=== PATIENT | female | born 1985 | race Two or more races ===

== ENCOUNTER → 2024-04-03 | Outpatient (CLI) | payer MEDICAID, SELFPAY ==
--- NOTE | 2024-04-03 13:07 | XR_ITS ---
Examination: Foot, right, 3 views Technique: AP, oblique, lateral views foot, 3 views Date and time of exam: April 03, 2024 1406 hours INDICATIONS: Injury to the foot 2 weeks ago with persistent foot pain. FINDINGS: No acute fracture No dislocation No foreign body IMPRESSION: No acute fracture
== END | disposition home or self-care (01) ==
LOC: CDIM 12:59
PROVIDERS: PCP Specialist; Referring Provider Physician Assistant; Visit Provider Physician Assistant
DX: S99.921A Unspecified injury of right foot, initial encounter (principal); X58.XXXA Exposure to other specified factors, initial encounter
CPT/HCPCS: 73630

== ENCOUNTER 2024-06-03 13:05 | Emergency (ER) | payer MEDICAID, SELFPAY ==
[2024-06-03 13:06] VITALS: BMI 38.6
[2024-06-03 13:18] VITALS: BP 132/89; PULSE 83; RESP 18; TEMP 37; O2SAT 97
--- NOTE | 2024-06-03 13:23 | PD.EDRME ---
Rapid Medical Screening Exam [facility] Arrival date/time: 06/03/24 13:05 -year-old female presents for concerns for possible infection to the right hand middle digit which is now radiating up her arm patient currently is on antibiotics Chief Complaint: Hand/Wrist Problems Vital signs: Vital Signs Temperature 98.6 F 06/03/24 13:18 Pulse Rate 83 06/03/24 13:18 Respiratory Rate 18 06/03/24 13:18 Blood Pressure 132/89 H 06/03/24 13:18 Pulse Oximetry (%) 97 06/03/24 13:18 Oxygen Delivery Method Room Air 06/03/24 13:18
[2024-06-03 13:45] LABS: Lactate (Lactic Acid) 2.1 mMol/L (0.4-2.0)
[2024-06-03 13:46] LABS: Basophils # (Auto) 0.1 Thou/mm3 (0.0-0.2); Basophils % (Auto) 1 % (0-2.5); Eosinophils # (Auto) 0.2 Thou/mm3 (0.0-0.5); Eosinophils % (Auto) 2 % (0-10); Hematocrit 34.2 % (36.0-46.0); Hemoglobin 11.6 g/dL (12.0-16.0); Immature Granulocytes % (Auto) 1 % (0-0); Immature Granulocytes Auto 0.06 Thou/mm3 (0.00-0.00); Lymphocytes # (Auto) 2.3 Thou/mm3 (1.0-4.8); Lymphocytes % (Auto) 24 % (10-50); Mean Corpuscular HGB Conc 33.9 g/dl (31.0-37.0); Mean Corpuscular Hemoglobin 27.4 pg (25.0-35.0); Mean Corpuscular Volume 81 fL (80-100); Monocytes # (Auto) 0.7 Thou/mm3 (0.0-0.8); Monocytes % (Auto) 7 % (0-12); Neutrophils # (Auto) 6.2 Thou/mm3 (1.8-7.7); Neutrophils % (Auto) 65 % (37-80); Nucleated Red Blood Cell % 0 /100 WBC (0); Platelet Count 256 Thou/mm3 (140-440); RDW Standard Deviation 40.2 fL (36.4-46.3); Red Blood Count 4.23 Miln/mm3 (4.00-5.20); White Blood Count 9.5 Thou/mm3 (3.6-11.0)
[2024-06-03 14:03] LABS: HCG,Qualitative Serum Negative
[2024-06-03 14:20] LABS: Alanine Aminotransferase 28 U/L (10-49); Albumin, Serum 4.2 gm/dL (3.5-5.0); Albumin/Globulin Ratio 1.4 (1.2-2.2); Alkaline Phosphatase 91 U/L (46-116); Anion Gap 8 (7-16); Aspartate Amino Transferase 30 U/L (0-34); BUN/Creatinine Ratio 14 Ratio (12-20); Bilirubin,Total 0.2 mg/dL (0.3-1.2); Blood Urea Nitrogen 13 mg/dL (9-23); C-Reactive Protein 2.1 mg/dL (0.0-0.9); Calcium 9.2 mg/dL (8.3-10.6); Calcium (Corrected) 9.2 mg/dL (8.5-10.1); Carbon Dioxide 24.8 mMol/L (20.0-31.0); Chloride 106 mMol/L (98-107); Creatinine (Component) 0.9 mg/dL (0.6-1.3); Estimated Creatinine Clearance 96.6 mL/min (>60); Globulin 2.9 gm/dL (2.3-3.5); Glucose 130 mg/dL (74-106); Osmolality,Calculated 279 (275-295); Potassium 4.6 mMol/L (3.4-5.1); Procalcitonin < 0.04 ng/ml (0.0-0.49); Sodium 139 mMol/L (136-145); Total Protein 7.1 gm/dL (5.7-8.2); eGFR > 60 See Note
[2024-06-03 15:02] LABS: Sed Rate (ESR) 30 mm/hr (0-20)
--- NOTE | 2024-06-03 15:47 | EDNOTE_ITS ---
<Statement entered by Manju Thacker MD - 06/03/24 17:06> As co-signing physician, I was present and available for consult prn. I concur with the plan and care as documented by the midlevel provider. ED General RME/HPI General Chief complaint: Hand/Wrist Problems Stated complaint: LEFT HAND SWELLING, POSS CELLULITIS X3D Time Seen by Provider: 06/03/24 14:17 Arrival date/time: 06/03/24 13:05 CC: Redness and streaking from a small infection site on the medial aspect of the base of the third digit. Patient was seen by PCP on Saturday started on Bactrim, the patient was informed if there is no improvement in 48 hours to come to the ER for IV antibiotics. The patient is afebrile nontoxic-appearing not in any acute distress. Patient states it is a spider bite . There is 2 papules in the third digit and then there is subtle streaking to the anterior of the forearm. RME / HPI RME / HPI narrative: 06/03/24 13:05 -year-old female presents for concerns for possible infection to the right hand middle digit which is now radiating up her arm patient currently is on antibiotics Related Data Previous Rx's ?Medication ?Instructions ?Recorded methocarbamol 750 mg tablet 750 mg PO TID PRN muscle p ain #30 10/13/20 tabs methylprednisolone 4 mg tablets in See Rx Instructions .Route 10/13/20 a dose pack (Medrol (Sid)) .COMPLEX #21 tabs hydrocodone 5 mg-acetaminophen 325 1 tab PO BID PRN pa in #10 tabs 01/03/21 mg tablet sulfamethoxazole 800 1 tab PO BID #20 tabs mg-trimethoprim 160 mg tablet (Bactrim DS) prednisone 20 mg tablet See Taper PO BID 3 days #6 t abs 06/03/24 Allergies Allergy/AdvReac Type Severity Reaction Status Date / Time Penicillins Allergy Severe Swelling Verified 06/03/24 13:08 of Lip/Tongue/Throat Review of Systems Review of Systems Narrative Review of Systems: GEN: No fever, no chills, no weight loss EYES: No discharge, no visual changes, no pain HEENT: No ear pain, no congestion, no sore throat PULM: No shortness of breath, no cough, no congestion CV: No chest pain, no dyspnea on exertion, no palpitations GI: No nausea, no vomiting, no diarrhea, no pain, no constipation : No frequency, no urgency, no dysuria MUSC/SKEL: No joint pain, no back pain SKIN: No rash PSYCH: No hallucinations, no depression HEME/LYMPH: No easy bleeding or bruising tendencies NEURO: No weakness, no headache Past Medical History Past Medical History CARDIAC: Negative Congestive Heart Failure RESPIRATORY: Negative Chronic Obstructive Pulmonary Disease (COPD) GENITOURINARY: Negative Renal Disease ENDOCRINE: Positive Hypoglycemia; Negative Diabetes Mellitus Type 1 or Diabetes Mellitus Type 2 Social History SMOKING STATUS: Never smoker ED Exam Narrative Physical exam: [General: Obese not in any acute distress Head normocephalic HEENT: Within acceptable limits Neck is supple nontender Chest equal chest rise nontender to palpation Respiratory: Clear to auscultation no wheezes crackles or rubs CV: Rate rhythm is regular no murmurs rubs or clicks Abdomen is distended secondary to body habitus soft nontender no masses positive bowel sounds all 4 quadrants Back: No CVA tenderness no spinous process tenderness from cervical spine thoracic and lumbar spine Skin: Small papule to the medial aspect of the base of the third digit left hand with streaking that starts to the dorsum of the hand and extends up to just distal of the antecubital fossa. No other open lesions indurations or ulcerations. Intact no petechiae rash induration ulceration or crepitus Extremities: Moving all extremity against resistance cap refill less than 2 seconds neurosensory intact Neuro: Awake alert oriented x3 Glascow coma 15 no focal deficits] Course Quality Measures none Orders Category Date Time Status Blood Culture (Lab) Stat Lab 06/03/24 13:30 Received CBC Stat Lab 06/03/24 13:30 Completed CMP [Comprehensive Metabolic Panel] Stat Lab 06/03/24 13:30 Completed CRP [C-Reactive Protein] Stat Lab 06/03/24 13:30 Completed ESR [Sed Rate (ESR)] Stat Lab 06/03/24 13:30 Completed HCG,Qualitative Serum Stat Lab 06/03/24 13:30 Completed Lactic Acid [Lactate (Lactic Acid)] Stat Lab 06/03/24 13:30 Results Procalcitonin Stat Lab 06/03/24 13:30 Completed cefTRIAXone [Rocephin] 1,000 mg Med 06/03/24 15:46 Ordered Lidocaine 1% 20 ml [Xylocaine 1% 20 ML] 2.1 ml IM X1 Vital Signs Vital signs: Vital Signs Temperature 98.6 F 06/03/24 13:18 Pulse Rate 83 06/03/24 13:18 Respiratory Rate 18 06/03/24 13:18 Blood Pressure 132/89 H 06/03/24 13:18 Pulse Oximetry (%) 97 06/03/24 13:18 Oxygen Delivery Method Room Air 06/03/24 13:18 [facility] Patient data External records reviewed:: [facility] previous records Clinical information provided by:: patient Social determinants that could affect healthcare access:: none Patient has the following chronic illnesses:: Morbid obesity How is presenting disease/condition affected by chronic disease/condition?: u neffected by Evaluation data The following diagnostics were reviewed and interpreted by me:: lab results Lab and/or radiology exams considered but not ordered:: CBC shows no acute leukocytosis H&H of 11.6 and 34.2 respectively with normal platelets yes CMP shows no significant electrolyte imbalances and glucose mildly elevated 130 lactic of 2.1 total bili of 0.2 C-reactive protein 2.1 Pro-Kevin is negative at 0.04. hCG is negative Interpretation Summary: I am not sure if this is an infectious process or reactive from the site. Will give the patient a gram of Rocephin and started on steroids along with the Bactrim the patient is already on. Medications Medications considered but not ordered:: None Medication administrations:: Medication Administration History Ceftriaxone Sodium 1,000 mg/ (Lidocaine HCl 2.1 ml) 0 mg IM X1 ONE Stop: 06/03/24 15:47 None Consultations Consultation(s) initiated? (list below): No Diagnosis Differential Diagnosis ED Complaint MDM: Cellulitis reactive process allergic reaction Most likely diagnosis given after review of the tests above:: Cellulitis Admission Indicated Admission indicated?: not indicated Explain why admission is indicated or not indicated:: Stable for discharge Admission Request Was there a request for admission?: No Disposition Plan Disposition Plan: Discharge Discharge Attestation Discharge Attestation: The patient and all family members were given an opportunity to ask questions and understood the discharge instructions. Discharge instructions specifically effects, indications for sooner follow up or return to the emergency department, and the expected course of current diagnosis. Patient condition: Stable Medical Decision Making Differential Diagnosis Differential Diagnosis: Cellulitis reactive process allergic reaction Lab Data 06/03/24 13:30 06/03/24 13:30 Labs: Lab Results 06/03/24 Range/Units 13:30 WBC 9.5 (3.6-11.0) Thou/mm3 RBC 4.23 (4.00-5.20) Miln/mm3 Hgb 11.6 L (12.0-16.0) g/dL Hct 34.2 L (36.0-46.0) % MCV 81 (80-100) fL MCH 27.4 (25.0-35.0) pg MCHC 33.9 (31.0-37.0) g/dl RDW Std Deviation 40.2 (36.4-46.3) fL Plt Count 256 (140-440) Thou/mm3 Neut % (Auto) 65 (37-80) % Lymph % (Auto) 24 (10-50) % [place] % (Auto) 7 (0-12) % Eos % (Auto) 2 (0-10) % Baso % (Auto) 1 (0-2.5) % Neut # (Auto) 6.2 (1.8-7.7) Thou/mm3 Lymph # (Auto) 2.3 (1.0-4.8) Thou/mm3 [place] # (Auto) 0.7 (0.0-0.8) Thou/mm3 Eos # (Auto) 0.2 (0.0-0.5) Thou/mm3 Baso # (Auto) 0.1 (0.0-0.2) Thou/mm3 Immature Gran # (Auto) 0.06 H (0.00-0.00) Thou/mm3 Absolute Nucleated RBC 0.00 (0.00-0.00) Thou/mm3 Immature Gran % 1 H (0-0) % Nucleated RBC % 0 (0) /100 WBC ESR 30 H (0-20) mm/hr Sodium 139 (136-145) mMol/L Potassium 4.6 (3.4-5.1) mMol/L Chloride 106 (98-107) mMol/L Carbon Dioxide 24.8 (20.0-31.0) mMol/L Anion Gap 8 (7-16) BUN 13 (9-23) mg/dL Creatinine 0.9 (0.6-1.3) mg/dL Estim Creat Clear Calc 96.6 (>60) mL/min eGFR > 60 (60 - ) See Note BUN/Creatinine Ratio 14 (12-20) Ratio Glucose 130 H (74-106) mg/dL Calculated Osmolality 279 (275-295) Lactic Acid 2.1 H (0.4-2.0) mMol/L Calcium 9.2 (8.3-10.6) mg/dL Corrected Calcium 9.2 (8.5-10.1) mg/dL Total Bilirubin 0.2 L (0.3-1.2) mg/dL AST 30 (0-34) U/L ALT 28 (10-49) U/L Alkaline Phosphatase 91 (46-116) U/L C-Reactive Prot, Quant 2.1 H (0.0-0.9) mg/dL Total Protein 7.1 (5.7-8.2) gm/dL Albumin 4.2 (3.5-5.0) gm/dL Globulin 2.9 (2.3-3.5) gm/dL Albumin/Globulin Ratio 1.4 (1.2-2.2) Procalcitonin < 0.04 (0.0-0.49) ng/ml HCG, Qual Negative Discharge Plan Plan Patient Disposition: HOME (Self Care) Patient condition on transfer: Stable Prescriptions/Referrals Prescriptions/Med Rec: New prednisone 20 mg tablet See Taper PO BID 3 Days Qty: 6 0RF Taper: Prednisone Taper 20 mg DAILY for 2 Days and 0 Hour 10 mg DAILY for 2 Days and 0 Hour 5 mg DAILY for 7 Days and 0 Hour No Action hydrocodone-acetaminophen 5-325 mg tablet 1 tab PO BID MDD 10 PRN (Reason: pain) Qty: 10 0RF methylprednisolone [Medrol (Sid)] 4 mg tablets,dose pack See Rx Instructions .ROUTE .COMPLEX Qty: 21 0RF Rx Instructions: take medication as directed on pack methocarbamol 750 mg tablet 750 mg PO TID PRN (Reason: muscle pain) Qty: 30 0RF sulfamethoxazole-trimethoprim [Bactrim DS] 800-160 mg tablet 1 tab PO BID Qty: 20 0RF Referrals: Germania Lauren PA-C [Primary Care Provider] - In 1 week Problem List Clinical Impression: Cellulitis of arm Patient/Caregiver Discharge Instructions Other Activity Instructions:: Take the steroids along with the antibiotics until completely gone. Take a photograph every 12 hours to monitor the streaking. If there is worsening of symptoms return the emergency room for reevaluation. Education Materials: ED Cellulitis Print Language: Lao Stand Alone Forms: Rani Award Info., Patient Portal Info Letter, Work/School Release PA/[employer] Supervising Physician PA/[employer] Supervising Physician: Wes solorio ENP
[2024-06-03] MEDS: cefTRIAXone 1,000 MG, LIDOCAINE 1% 20 ML 2.1 ML IM (16:29)
[2024-06-03 16:34] VITALS: BP 125/84; PULSE 67; RESP 16; TEMP 36.7; O2SAT 96
[2024-06-03 16:42] LABS: Reflex Lactate? Y
[2024-06-03 17:00] VITALS: BP 125/84; PULSE 67; RESP 17; TEMP 36.7; O2SAT 96
== END 2024-06-03 17:00 | disposition home or self-care (01) ==
PROVIDERS: Nurse Practitioner Primary Care; Emergency Provider Emergency Medicine; PCP Specialist
DX: L03.116 Cellulitis of left lower limb (principal); E66.9 Obesity, unspecified; Z68.38 Body mass index [BMI] 38.0-38.9, adult; Z88.0 Allergy status to penicillin
CPT/HCPCS: 36415; 80053; 83605; 84145; 84703; 85025; 85652; 86140; 87040; 96372; 99283; J0696; J3490

== ENCOUNTER 2024-08-03 16:35 | Emergency (ER) | payer MEDICAID, SELFPAY ==
[2024-08-03 16:36] VITALS: BMI 42.9
--- NOTE | 2024-08-03 17:15 | EDNOTE_ITS ---
<Statement entered by Manju Thacker MD - 09/15/24 04:09> As co-signing physician, I was present and available for consult prn. I concur with the plan and care as documented by the midlevel provider. ED General RME/HPI General Chief complaint: Back Pain/Injury Stated complaint: COCCYX PAIN S/P FALL 2 WEEKS AGO Time Seen by Provider: 08/03/24 17:13 Arrival date/time: 08/03/24 16:35 RME / HPI RME / HPI narrative: 08/03/24 16:35 39-year-old female with no known medical history presents to the emergency room with a chief complaint of lumbar back pain after a fall that occurred 2 weeks ago. She denies any numbness or tingling to her lower extremities. She denies any loss of bladder or bowel control. She denies any recent illness with fever, chills, cough, upper respiratory complaints, nausea, vomiting, diarrhea or abdominal pain. She denies any dysuria, frequency, or hematuria. Related Data Previous Rx's ?Medication ?Instructions ?Recorded methocarbamol 750 mg tablet 750 mg PO TID PRN muscle p ain #30 10/13/20 tabs methylprednisolone 4 mg tablets in See Rx Instructions .Route 10/13/20 a dose pack (Medrol (Sid)) .COMPLEX #21 tabs hydrocodone 5 mg-acetaminophen 325 1 tab PO BID PRN pa in #10 tabs 01/03/21 mg tablet sulfamethoxazole 800 1 tab PO BID #20 tabs mg-trimethoprim 160 mg tablet (Bactrim DS) meloxicam 15 mg tablet 15 mg PO QDAY PRN pain #10 t abs 08/03/24 methocarbamol 750 mg tablet 750 mg PO Q8H PRN Muscle s pasms 08/03/24 #15 tabs Allergies Allergy/AdvReac Type Severity Reaction Status Date / Time Penicillins Allergy Severe Swelling Verified 08/03/24 16:38 of Lip/Tongue/Throat Review of Systems Review of Systems Systems Reviewed: All systems reviewed, normal except as documented Past Medical History Past Medical History CARDIAC: Negative Congestive Heart Failure RESPIRATORY: Negative Chronic Obstructive Pulmonary Disease (COPD) GENITOURINARY: Negative Renal Disease ENDOCRINE: Positive Hypoglycemia; Negative Diabetes Mellitus Type 1 or Diabetes Mellitus Type 2 Social History SMOKING STATUS: Never smoker ED Exam Narrative Physical exam: A&O, afebrile and non-toxic appearing 39-year-old female, mild acute pain distress. Lung are clear, RRR, Abdomen is soft and non-distended. No CVA tenderness. Lumbar and paraspinal tenderness noted with spasms and bilateral sciatic notch tenderness. No swelling or ecchymosis noted. Negative straight leg raise bilaterally. DTRs intact. CMS intact to all 4 extremities. Moves all extremities well. Course Course Course Narrative: Urinalysis is negative for infection. Urine hCG is negative. Lumbar spine x-ray reveals: Adequate alignment of lumbar vertebral bodies. No lumbar fracture. Diffuse [id number] lumbar disc narrowing. Patient was given Toradol 30 mg IM. She was then given hydrocodone 7.5 mg as well as diazepam 5 mg p.o. prior to discharge Quality Measures none Orders Category Date Time Status XR lumbar spine 2-3V Stat Exams 08/03/24 17:18 Completed HCG Qualitative,Urine Stat Lab 08/03/24 17:39 Completed HCG Qualitative,Urine Stat Lab 08/03/24 20:08 Completed Urinalysis Stat Lab 08/03/24 20:08 Completed Urine Culture Stat Lab 08/03/24 20:08 Completed Diazepam [Valium] Med 08/03/24 22:01 Discontinued 5 mg PO X1 ONE HYDROcodone*/APAP 7.5/325 [[place] 7.5/325] Med 08/03/24 22:01 Discontinued 1 tab PO X1 ONE Ketorolac Inj [Toradol Inj] Med 08/03/24 17:18 Discontinued 30 mg IM X1 ONE Vital Signs Vital signs: Vital Signs Oxygen Delivery Method Room Air 08/03/24 17:15 Discharge Plan Plan Patient Disposition: HOME (Self Care) Discharge Disposition comment: Stable Prescriptions/Referrals Prescriptions/Med Rec: New methocarbamol 750 mg tablet 750 mg PO Q8H PRN (Reason: Muscle spasms) Qty: 15 0RF meloxicam 15 mg tablet 15 mg PO QDAY PRN (Reason: pain) Qty: 10 0RF No Action hydrocodone-acetaminophen 5-325 mg tablet 1 tab PO BID MDD 10 PRN (Reason: pain) Qty: 10 0RF methylprednisolone [Medrol (Sid)] 4 mg tablets,dose pack See Rx Instructions .ROUTE .COMPLEX Qty: 21 0RF Rx Instructions: take medication as directed on pack methocarbamol 750 mg tablet 750 mg PO TID PRN (Reason: muscle pain) Qty: 30 0RF sulfamethoxazole-trimethoprim [Bactrim DS] 800-160 mg tablet 1 tab PO BID Qty: 20 0RF Referrals: Germania Lauren PA-C [Primary Care Provider] - In 1 week Problem List Clinical Impression: Strain of lumbar region, Degenerative disc disease, lumbar Patient/Caregiver Discharge Instructions Education Materials: Understanding Lumbosacral Strain, ED Degenerative Disk Disease Additional Instructions: Follow-up with your primary care physician in 24 to 48 hours. Return to the ED for any new or worsening symptoms. Print Language: Indonesian Stand Alone Forms: [place] Award Info., Patient Portal Info Letter DARYL/TIO Supervising Physician DARYL/TIO Supervising Physician: Dr. Kedar HDEZ Narrative [facility] hospital course: 39-year-old female with no known medical history presents to the emergency room with a chief complaint of lumbar back pain after a fall that occurred 2 weeks ago. She denies any numbness or tingling to her lower extremities. She denies any loss of bladder or bowel control. She denies any recent illness with fever, chills, cough, upper respiratory complaints, nausea, vomiting, diarrhea or abdominal pain. She denies any dysuria, frequency, or hematuria. A&O, afebrile and non-toxic appearing 39-year-old female, mild acute pain distress. Lung are clear, RRR, Abdomen is soft and non-distended. No CVA tenderness. Lumbar and paraspinal tenderness noted with spasms and bilateral sciatic notch tenderness. No swelling or ecchymosis noted. Negative straight leg raise bilaterally. DTRs intact. CMS intact to all 4 extremities. Moves all extremities well. Urinalysis is negative for infection. Urine hCG is negative. Lumbar spine x-ray reveals: Adequate alignment of lumbar vertebral bodies. No lumbar fracture. Diffuse [id number] lumbar disc narrowing. Patient was given Toradol 30 mg IM. She was then given hydrocodone 7.5 mg as well as diazepam 5 mg p.o. prior to discharge. Symptoms, exam and diagnostic studies are consistent with: Lumbar Strain Patient was discharged home in stable condition. Patient/family advised to follow-up with their PCP in 24-48 hours. Encouraged to return to the ED for any new or worsening symptoms. Clinical Information Provided by patient Medical Records Reviewed None Meds/Rx Considered, not Ordered None Describe details: N/A Labs/Rad/Tests considered, not Ordered None Describe details: N/A Chronic Illness/Social Conditions which may negatively complicate care or outcome(s)-explain: None or not applicable EKG EKG not done Lab Interpretation Labs: interpreted by me and see narrative above Lab(s) interpretation(s): As above Imaging Imaging interpretation: see narrative above Radiology reports / interpretation(s): As above Medication Administration(s) Medication Administration History Discontinued Medications Hydrocodone Bitart/Acetaminophen (Hydrocodone/Apap 7.5/325 Tablet) 1 tab PO X1 ONE Stop: 08/03/24 22:02 Last Admin: 08/03/24 22:36 Dose: 1 tab Documented By: GIANNA Diazepam (Diazepam 5 Mg Tablet) 5 mg PO X1 ONE Stop: 08/03/24 22:02 Last Admin: 08/03/24 22:36 Dose: 5 mg Documented By: GIANNA Ketorolac Tromethamine (Ketorolac Inj 60 Mg/2 Ml Vial) 30 mg IM X1 ONE Stop: 08/03/24 17:19 Last Admin: 08/03/24 20:35 Dose: 30 mg Documented By: GIANNA As above Diagnosis Differential diagnosis: Lumbar fracture, lumbar strain, radiculopathy, cauda equina syndrome Most likely dx, and/or detailed dx discussion: Lumbar strain Dispositon Disposition: Discharge Home Disposition comments: Stable for discharge
--- NOTE | 2024-08-03 17:18 | XR_ITS ---
Examination: Lumbar spine 3 views TECHNIQUE: AP lateral coned lateral of the lower lumbar spine 3 views INDICATIONS: Patient fell 3 weeks ago with into the lower back, lower back pain. FINDINGS: Adequate alignment of lumbar vertebral bodies No lumbar fracture Diffuse [id number] lumbar disc narrowing IMPRESSION: No lumbar fracture
--- NOTE | 2024-08-03 17:20 | PD.EDRME ---
Rapid Medical Screening Exam RME Arrival date/time: 08/03/24 16:35 39-year-old female with no known medical history presents to the emergency room with a chief complaint of lumbar back pain after a fall that occurred 2 weeks ago. I have greeted and performed a focused initial assessment of this patient. A comprehensive ED assessment and evaluation of the patient, analysis of all test results, and completion of the medical decision making process will be conducted by additional ED providers. Chief Complaint: Back Pain/Injury Time Seen by Provider: 08/03/24 17:13 Vital signs: Vital Signs Oxygen Delivery Method Room Air 08/03/24 17:15 Vital signs reviewed by provider: Yes
[2024-08-03 17:22] VITALS: BP 134/89; PULSE 82; RESP 18; TEMP 36.5; O2SAT 97
[2024-08-03 18:32] LABS: HCG Qualitative,Urine Positive
[2024-08-03 20:12] LABS: Collection Type, Urine Clean Catch
[2024-08-03 20:34] LABS: HCG Qualitative,Urine Negative
[2024-08-03] MEDS: KETOROLAC INJ 60 MG/2 ML VIAL 30 MG IM (20:35)
[2024-08-03 20:40] LABS: Bacteria,Urine 1+; Bilirubin,Urine Negative (Negative); Blood,Urine Negative (Negative); Clarity,Urine Clear (Clear/Hazy); Color,Urine Lt-Yellow (Lt Yel-Yel); Glucose, Urine Negative (Negative); Ketones,Urine Negative (Negative); Leukocyte Esterase,Urine Negative (Negative); Nitrite,Urine Negative (Negative); Protein,Urine Negative (Neg - Trace); RBC,Urine 1 /hpf (0-3); Specific Gravity,Urine 1.017 (1.001-1.035); Squamous Epithelial Cell,Urine 3 /hpf (0-5); Urobilinogen,Urine Negative mg/dL (0.0-1.0); WBC,Urine 1 /hpf (0-5)
[2024-08-03] MEDS: DIAZEPAM 5 MG TABLET PO (22:36)
[2024-08-03] MEDS: HYDROcodone/APAP 7.5/325 TABLET 1 TAB PO (22:36)
[2024-08-03 22:37] VITALS: BP 118/79; PULSE 74; RESP 16; TEMP 36.7; O2SAT 98
== END 2024-08-03 22:38 | disposition home or self-care (01) ==
PROVIDERS: Nurse Practitioner Family; Physician Assistant; Emergency Provider Emergency Medicine; PCP Specialist
DX: S39.012A Strain of muscle, fascia and tendon of lower back, initial encounter (principal); M51.360 Other intervertebral disc degeneration, lumbar region with discogenic back pain only; W19.XXXA Unspecified fall, initial encounter
CPT/HCPCS: 72100; 81001; 81025; 87086; 87186; 96372; 99283; J1885; A9270